=== PATIENT | male | born 1950 | race Caucasian/White ===

== ENCOUNTER 2019-12-15 09:47 | Emergency (ER) | payer MEDICARE, OTHER ==
[2019-12-15] MEDS ORDERED: SODIUM CHLORIDE 0.9% (FLUSH) 10 ML SYG IV PRN (09:55)
[2019-12-15] MEDS ORDERED: SODIUM CHLORIDE 0.9% 500ML 500 ML IVS ONE (10:10)
--- NOTE | 2019-12-15 10:19 | RAD ---
Procedure: XR CHEST 1 VIEW Exam Date: 12/15/2019 Ordering Provider: Danny Dias Clinical Indication: syncope Comparison: None Findings: Cardiomediastinal silhouette is within normal limits. No focal lung consolidation. No pleural effusion. No pneumothorax. No acute osseous abnormality. Impression: 1. No acute abnormality in the chest. Electronically signed by: Eric Valdovinos MD 12/15/2019 10:17 AM [facility]
--- NOTE | 2019-12-15 10:43 | ED.PDOC ---
History of Present Illness - General Chief Complaint: Syncope/Near Syncope Stated Complaint: Pt had a syncopal event, fell in hit head. Time Seen by Provider: 12/15/19 09:55 - History of Present Illness Initial Comments: 69yo male presents with family after syncopal episode this morning, while standing in bathroom counter. Denies antecedent illness or symptoms, awoke on the floor. Hit head, is taking warfarin. Has aching at the contusion, but no severe headache at this time. No numbness or weakness. Also notes mild neck pain. Is taking warfarin due to history of pulmonary embolism, which was diagnosed several years ago, has not been restudied, was advised to take warfarin for life. No history of syncope, arrhythmia or other cardiac history. Allergies/Adverse Reactions: Allergies NO KNOWN ALLERGY Allergy (Verified 12/15/19 10:13) Review of Systems - Review of Systems Review of Systems: 12/15/19 10:41 General: Denies generalized weakness, fever, arthralgia/myalgia HEENT: Denies sore throat, rhinorrhea Cardiovascular: Denies chest pain, palpitations prior to syncope Respiratory: Denies SOB, cough Gastrointestinal: Denies abdominal pain, vomiting, diarrhea : Denies dysuria, frequency Musculoskeletal: Denies extremity pain, extremity swelling Integument: Denies rash, itching Neuro: Denies focal weakness or numbness Psych: Denies depression, hallucinations. Past Medical History (General) - Patient Medical History Hx Stroke: No Hx of COPD: No Hx Cardiac Disorders: Yes - Mitral valve prolapse Hx Hypertension: Yes Hx Diabetes: No Hx Cancer: Yes - prostrate Surgical History: cancer surgery, colectomy - Vaccination History Hx Tetanus, Diphtheria Vaccination: Yes Hx Influenza Vaccination: Yes Hx Pneumococcal Vaccination: Yes - Social History Hx Tobacco Use: Yes Hx Alcohol Use: Yes Hx Substance Use: No Hx Substance Use Treatment: No Hx Depression: No - Female History Patient is a Female of Child Bearing Age (10 -59 yrs old): No Patient : No Family Medical History - Family History Mother Family History: No Known Physical Exam - Physical Exam Comments: General Appearance: Patient is awake and alert. Skin: Warm and dry. No diaphoresis. No rash or other lesions. Head: Normocephalic/atraumatic except small contusion posterior scalp. Eyes: PERRL, lids, conjunctiva and sclera unremarkable. EOMI intact. ENT: No nasal discharge. Oropharynx. Without erythema, exudate, lesions. Moist mucous membranes. Neck: Supple. No LAD. mild discomfort midline. No JVD noted. Respiratory: Normal rate and effort. Breath sounds clear bilaterally. Cardiovascular: Regular rate. Heart sounds normal. No murmur. GI: Abdomen soft, non-distended and non-tender. No rebound/guarding. Bowel sounds normal. Back: No tenderness Musculoskeletal: Extremities- Normal range of motion. No effusion, cyanosis, edema. Neurological: Alert. No facial palsy. Speech clear. Gag intact. No motor deficit, str symmetric. No sensory deficit. Progress - Progress Progress: 12/15/19 12:02 Safety Stop Patient feels much better. VS, exam remain reassuring. asympt with standing, vasquez PO. Labs, imaging are without acute abnormality. he has no evidence of emergent cardiac condition. neg CT imaging. I have discussed findings, diff dx, plan of care, need for follow-up with Cards, and reasons to return to the ED. we have discussed EKG, provided copy. Safety Stop (Diagnostic Time-Out): Tachycardia: No Diagnostic Studies: Reviewed Diagnostic Certainty: low, d/w patient Patient/family feels safe with discharge: Yes 12/15/19 12:17 - Results/Orders Results/Orders: Vital Signs - 24 hr 12/15/19 12/15/19 09:50 10:01 Temperature 96.8 F L Pulse Rate [ 94 H 94 H Pulse ox] Respiratory 16 16 Rate Blood Pressure 176/89 [L brachial] O2 Sat by Pulse 97 Oximetry 12/15/19 09:55 Telemetry .ONCE Sodium Chloride 0.9% (Flush) [Saline Flush Syringe] 10 ml IV PRN PRN EKG Stat Pulse Ox Stat 12/15/19 10:03 CARDIAC PANEL,ER Stat 12/15/19 10:09 CTA Chest [CT] Stat Cervical Spine [CT] Stat Head [CT] Stat Laboratory Results - last 24 hr 12/15/19 12/15/19 10:03 10:03 WBC 5.5 RBC 4.40 L Hgb 14.6 Hct 42.7 MCV 97.2 H MCH 33.2 H MCHC 34.1 RDW 14.4 Plt Count 114 L MPV 7.8 Absolute Neuts (auto) 3.40 Absolute Lymphs (auto) 1.40 Absolute Monos (auto) 0.60 Absolute Eos (auto) 0.10 Absolute Basos (auto) 0.00 Neutrophils % 61.1 Lymphocytes % 25.7 Monocytes % 10.8 H Eosinophils % 1.6 Basophils % 0.8 D-Dimer, Quantitative < 131 L Sodium 140 Potassium 4.0 Chloride 105 Carbon Dioxide 24 Anion Gap 15.0 BUN 12 Creatinine 1.09 BUN/Creatinine Ratio 11.0 Random Glucose 103 Serum Osmolality 279.4 Calcium 9.5 Magnesium 2.0 Creatine Kinase 149 CK-MB (CK-2) 2.1 CK-MB (CK-2) % Not Reportable Troponin I < 0.02 - EKG/XRAY/CT EKG: Sinus - 94 Comments: IA 202, bifascicular block QRS 154, no acute ischemia CT Ordered: Yes CT Interpretation Call Back: Yes - CT head, cspine, CTA chest neg for acute abnl Departure - Departure Clinical Impression: Syncope, Bifascicular block Time of Disposition: 12:04 Disposition: Discharge to Home or Self Care Condition: Good Departure Forms: ED Discharge - Pt. Copy, Patient Portal Self Enrollment Instructions: DI for Syncope in Adults (Fainting) Referrals: SHANIQUE HANCOCK MD [Consulting Staff] - 1-2 Weeks
--- NOTE | 2019-12-15 10:55 | CT ---
EXAM DESCRIPTION: Head: Computed Tomography. CLINICAL HISTORY: trauma, on warfarin. Possible LOC COMPARISON: CT scan of the cervical spine and CTA of the chest on this visit. TECHNIQUE: Non-helical axial scans through the skull and brain, at 5.0 x 20 intervals, non-contrast. Coronal and sagittal 2.0 mm reconstructions. Total Exam DLP: 859.97 mGy-cm. This exam was performed according to our departmental dose-optimization program which includes automated exposure control, adjustment of the mA and/or kV according to patient size and/or use of iterative reconstruction technique; to reduce radiation dose to as low as reasonably achievable (ALARA). FINDINGS: No hemorrhage, no mass-effect, and no midline shift. Low-density abutting the bilateral occipital horns of the lateral ventricles in the posterior bodies of the lateral ventricles in the occipital lobe. Bilateral basal ganglier calcifications. No abnormal parenchymal hemorrhage. Vascular calcifications anterior and posterior circulations; physiologic calcifications in the pineal gland and choroid plexus. No effacement or displacement of the ventricles, CSF spaces, or subdural spaces. No extra axial fluid collection or hemorrhage. No gross abnormalities of the bony calvarium. Mastoid air cells are well - aerated. Minimal mucoperiosteal thickening in the bilateral ethmoid air cells. Millie bullosa left middle turbinate. IMPRESSION: 1. No hemorrhage, no mass effect, no midline shift. Periventricular white matter low-density most likely related to cerebral microvascular disease and aging. No extra-axial hemorrhage or abnormal fluid collection. 2. CT scans are insensitive for detecting small CVAs in the first 24 hours after onset. Evaluation of the brain stem is also limited. If symptoms persist, consider NON-EMERGENT MRI scan of the brain with diffusion imaging. 3. Minimal chronic paranasal sinus findings. Electronically signed by: Shen Vicente MD 12/15/2019 10:54 AM SENIOR IT PROJECT MANAGER
--- NOTE | 2019-12-15 11:17 | CT ---
EXAM DESCRIPTION: CTA Chest: Computed Tomography. CLINICAL HISTORY: syncope, hx of PE. Ground-level fall. Patient on blood thinner. COMPARISON: CT scan of the head and CT scan of the cervical spine TECHNIQUE: Spiral-axial scans at 2.5 x 2.5 mm intervals through the pulmonary arteries and chest after bolus infusion of IV contrast. Lung algorithm 1.25 x 2.5 mm axial reconstructions. Coronal and sagittal 2.0 Mm reconstructions. 10.0 mm PE oblique 3-D reformatted images. No adverse reactions. Total Exam DLP: 998.07 mGy-cm. This exam was performed according to our departmental CT dose-optimization program which includes automated exposure control, adjustment of the mA and/or kV according to patient size and/or use of iterative reconstruction technique; to reduce radiation dose to as low as reasonably achievable (ALARA). FINDINGS: Pulmonary arteries: Fair visualization of the pulmonary arterial system containing IV contrast, with better contrast density in the right subclavian vein and superior vena cava. Contrast density within the aorta and left ventricle. No filling defects in the main pulmonary artery to the proximal subsegmental pulmonary arterial branches bilaterally. These peripheral pulmonary arterial branches are symmetric bilaterally. Heart and other great vessels: Minimal ectasia of the proximal aortic arch. Atherosclerotic calcification in the aortic arch and the proximal brachiocephalic vessels. Coronary artery calcifications. No significant cardiomegaly. Lungs and airways: Bilateral scattered peripheral blebs upper and lower lung bates. Bilateral posterior dependent atelectasis in the lower lobes. Bilateral pleural-parenchymal scarring in the lower lobes. Calcified granuloma posterior right upper lobe (pleura. No abnormal nodules and no masses. No focal infiltrates. No wedge-shaped pulmonary densities. Pleura: Bilateral multifocal thickening. Otherwise negative. Mediastinum and ebenezer: scatter artifact from dense PA contrast. Small lymph nodes. No dominant soft tissue masses or abnormal enhancement. Soft tissue neck, chest wall, and axillae: Bilateral axillary lymph nodes. Upper abdomen: No free air or free fluid. Normal size and density of the spleen and adrenal glands. Gallbladder partially visualized. 2 cm cyst lateral left renal cortex. Osseous structures: Arthrosis bilateral shoulders sternomanubrial joint. Kyphosis and spondylosis thoracic spine. No destructive bone lesions. IMPRESSION: 1. Opacification of the pulmonary artery system was not optimal, but no acute pulmonary embolus present. Right upper lobe parenchymal calcification versus pleural calcification 2. Chronic densities bilateral lungs with no abnormal nodules or masses. No pleural effusion or pneumothorax. 3. 2 cm left renal cyst. 4. Atherosclerotic calcification brachiocephalic vessels, thoracic aorta, and coronary arteries. Electronically signed by: Shen Vicente MD 12/15/2019 11:16 AM DISTRIBUTION ENGINEER
--- NOTE | 2019-12-15 11:44 | CT ---
EXAM DESCRIPTION: Cervical Spine: Computed Tomography. CLINICAL HISTORY: 69 years Male trauma, on warfarin. History of DVT. Syncope. Ground level fall. COMPARISON: CT scan of the head and CTA of the chest on the same visit. TECHNIQUE: Spiral, axial 2.5 x 2.5 mm scans through the cervical spine without contrast. Coronal and sagittal 2.0 mm Reconstructions Total Exam DLP: 378.61 mGy-cm. This exam was performed according to our departmental dose-optimization program which includes automated exposure control, adjustment of the mA and/or kV according to patient size and/or use of iterative reconstruction technique; to reduce radiation dose to as low as reasonably achievable (ALARA). FINDINGS: Hypertrophic arthrosis atlantoaxial joint with marginal spurs and joint space narrowing. Small soft tissue bone fragments secondary to arthrosis not trauma abutting the odontoid tip in the anterior foramen magnum. Arthrosis in the bilateral atlantooccipital joints with no traumatic changes. No significant arthrosis in the C1-C2 facets and no fractures. Minimal disc space narrowing at multiple levels from C2-3 to C7-T1. Most narrowing at C7-T1 with anterior bridging osteophytes more to the left of midline. Uncinate spurs narrowing the foramina more left than right. Near stenosis of the left neural foramen. And moderate canal narrowing. No significant canal or neural foraminal narrowing or stenosis at other levels. No vertebral body compression type fractures. No fractures of the posterior elements. No perched or locked facets. Mid cervical spine is slightly kyphotic. No significant scoliosis. No abnormally sized lymph nodes in the carotid space, posterior paracervical space, or included para- pharyngeal space. No abnormalities in the included lung parenchyma. IMPRESSION: 1. No acute fracture or subluxation in the cervical spine. 2. Kyphosis, spondylosis, minimal facet joint arthrosis with no perched or locked facets. Near stenosis of the left neural foramen at C7-T1, but not acute. Electronically signed by: Shen Vicente MD 12/15/2019 11:43 AM CHIEF TECHNOLOGIST
[2019-12-15 13:33] VITALS: BP 160/89; TEMP 97.3; O2SAT 96
== END 2019-12-15 12:41 | disposition home or self-care (01) ==
LOC: ER 09:47
DX: R55 Syncope and collapse (principal); I45.2 Bifascicular block; S00.93XA Contusion of unspecified part of head, initial encounter; M54.2 Cervicalgia; I34.1 Nonrheumatic mitral (valve) prolapse; I10 Essential (primary) hypertension; Z85.46 Personal history of malignant neoplasm of prostate; Z87.891 Personal history of nicotine dependence; Z79.01 Long term (current) use of anticoagulants; Z86.711 Personal history of pulmonary embolism; W18.30XA Fall on same level, unspecified, initial encounter; Y92.89 Other specified places as the place of occurrence of the external cause
CPT/HCPCS: 70450; 71045; 71275; 72125; 80048; 82550; 82553; 84484; 85025; 85379; 85610; 85730; 93005; J7040

== ENCOUNTER → 2020-06-20 | Outpatient (CLI) | payer MEDICARE, OTHER ==
--- NOTE | 2020-06-21 10:29 | US ---
EXAM DESCRIPTION: Renal: Ultrasound. CLINICAL HISTORY: 70 years Male PERSONAL HISTORY OF MALIGNANT NEOPLASM OF PROSTATE COMPARISON: None TECHNIQUE: Transcutaneous scanning: Two-dimensional and Doppler modes. FINDINGS: Right kidney measures 10.1 x 5.7 x 4.8 cm; volume 144.8 ml. Mid-renal cortical thickness normal . Normal cortical echogenicity. No hydronephrosis No echogenic stones. Smooth contour of the kidney with no perinephric fluid. Normal vascularity. Proximal ureter not seen.. Left kidney measures 11.0 x 7.0 x 6.6 cm; volume 230.3 ml. Mid-renal cortical thickness normal. echogenicity. No hydronephrosis. No echogenic stones. Smooth contour of the kidney with no perinephric fluid. Normal vascularity.. Proximal ureter not seen. 2.2 cm cyst with calcified wall and septations in the mid kidney. Urinary bladder was visualized. Prevoid volume 9.1 mL. Ureteral jet in the bladder not seen in the bladder by color Doppler. Patient did not void. Abdominal aorta: 2 cm proximally, 2 cm mid aorta, and 1.9 cm distally. IMPRESSION: 1. Complex partially calcified cyst left kidney. Consider CT follow-up without and with IV contrast. 2. Otherwise bilateral kidneys are unremarkable. 3. Urinary bladder visualized but ureters jets were not seen by color Doppler. Patient did not void. Normal caliber of the abdominal aorta. Electronically signed by: Shen Vicente MD 06/21/2020 10:27 AM CDT
== END ==
LOC: US 08:00
DX: E29.1 Testicular hypofunction (principal); N28.1 Cyst of kidney, acquired; Z85.46 Personal history of malignant neoplasm of prostate

== ENCOUNTER → 2020-09-05 | Outpatient (CLI) | payer MEDICARE, OTHER | LOC: GMAM 15:03 | PROVIDERS: ATTEND Family Medicine | DX: Z85.46 Personal history of malignant neoplasm of prostate (principal); R55 Syncope and collapse; I10 Essential (primary) hypertension; E78.2 Mixed hyperlipidemia ==

== ENCOUNTER → 2020-09-08 | Outpatient (CLI) | payer MEDICARE, OTHER ==
--- NOTE | 2020-09-09 21:54 | CT ---
EXAM DESCRIPTION: Abdomen/Pelvis w/wo Contrast: Computed Tomography. CLINICAL HISTORY: CYST OF KIDNEY COMPLEX COMPARISON: Ultrasound kidneys June 20. TECHNIQUE: Spiral-axial scans at 5 x 5 mm intervals through the abdomen and pelvis before and after 75 mL Optiray 320 nonionic IV contrast. No oral contrast. Coronal and sagittal 2.0 mm reconstructions. 5 mm Delayed helical-axial scans, liver through the pubic symphysis. No adverse reactions. Total Exam DLP 2800 mGy - cm. This exam was performed according to our departmental CT dose-optimization program which includes automated exposure control, adjustment of the mA and/or kV according to patient size and/or use of iterative reconstruction technique; to reduce radiation dose to as low as reasonably achievable (ALARA). FINDINGS: Kidneys and Ureters: 1.8 X 2.2 cm cyst protruding from the lateral left renal cortex with normal Hounsfield densities no calcification or abnormal enhancement. Minimal calcification of the medial capsule of the lower pole of the kidney. Right kidney is unremarkable. Bilateral ureters with no hydroureter or periureteral edema. Pelvic Organs: Minimal contrast seen in the urinary bladder on delayed views. Minimal wall thickening and no radiodense stones. Prostate gland abutting the base of the bladder and the seminal vesicles. No free fluid. Mesentery: No free air or free fluid or fatty stranding or fascial thickening. Dimock for penile implant in the lower right side of the pelvis anterior to the right external iliac artery and vein just below the cecum and extending into the right inguinal canal. Complications. Aorta: Moderate calcification. Lung bases and pleura: Emphysematous blebs peripheral septal thickening and scarring subpleural mostly in the right lower lobe. Liver, Stomach, Spleen, Adrenal Glands: Negative. Pancreas, Gallbladder, Ducts: Gallbladder visualized. Otherwise unremarkable. Small Bowel: Negative for distention. Terminal Ileum/Cecum: Normal caliber. Radiodense material inferior cecum radiodense food, or medication, or calcification. Colon: Diffuse minimal fecal matter with no air-fluid levels. Sigmoid anastomosis, mid segment; No complications. Spine and Bony Pelvis: Decreased bone density spondylolysis multiple levels lumbar and thoracic significant bilateral foraminal narrowing at L4-L5. Hypertrophic superior lateral acetabular margins with over coverage of the femoral heads. Also bilateral femoral cortical bumps just above the subcapital femoral necks. Bilateral SI joint arthrosis. Abdominal Wall/Back Soft Tissues: Minimal fatty tissue in the limiting of the canal but no bowel incarceration. IMPRESSION: 2.2 cm cyst protruding from the lateral cortex of the left kidney with no complications or concerning findings in either kidney. Minimal bladder wall thickening which may be due to prostate enlargement. No fluid in the pelvic cavity. Emphysematous changes in the lung bases. Dimock for penile implant in the right lower quadrant of the pelvis with no definite complications. Spondylosis thoracic and lumbar spine. Findings in the acetabula and lateral cortex of the femoral heads can be associated with femoral acetabular impingement. Electronically signed by: Shen Vicente MD 09/09/2020 9:53 PM CDT
== END ==
LOC: CT 08:00
PROVIDERS: ATTEND Family Medicine
DX: N28.1 Cyst of kidney, acquired (principal); N32.89 Other specified disorders of bladder; M47.894 Other spondylosis, thoracic region; M47.896 Other spondylosis, lumbar region; Z96.9 Presence of functional implant, unspecified; M25.851 Other specified joint disorders, right hip; M25.852 Other specified joint disorders, left hip

== ENCOUNTER 2020-12-14 05:31 | Day surgery (SDC) | payer MEDICARE, OTHER ==
[2020-12-14] MEDS ORDERED: LACTATED RINGERS 1,000 ML IVS ONE (06:35)
[2020-12-14] MEDS ORDERED: LACTATED RINGERS 1,000 ML ONE (06:41)
[2020-12-14] MEDS ORDERED: LIDOCAINE 1% 10 ML VIAL INJ ONE (07:00)
[2020-12-14] MEDS ORDERED: PROPOFOL 200 MG/20 ML VIAL IV ONE (07:00)
[2020-12-14 09:18] VITALS: BP 140/74; TEMP 97.5; O2SAT 98
--- NOTE | 2020-12-14 09:18 | OP ---
DATE OF PROCEDURE: 12/14/20 PREOPERATIVE DIAGNOSIS: 1. History of colon polyps. 2. History of colectomy. POSTOPERATIVE DIAGNOSIS: 1. Normal colon. PROCEDURE: 1. Colonoscopy. SURGEON: Warren Douglas MD ANESTHESIA: General, Pasha Parada CRNA. FINDINGS: Normal colon. I did not see the anastomosis from previous reported surgery. COMPLICATIONS: None. PLAN: Discharge. INDICATION: As stated. PROCEDURE: General anesthesia was induced in the lateral position. The patient had an adequate prep. He has been off his Coumadin now for 4 days. Digital rectal exam was normal. He has some uncomplicated hemorrhoids. The colonoscope was inserted and passed successfully to the cecum as identified by the appendiceal orifice and ileocecal valve. Upon withdrawal, with a good prep, no polyps were seen. There were no significant mucosal abnormalities. Again, I did not notice any prior anastomosis or evidence of stricturing. The patient tolerated the procedure and was taken to Recovery to be discharged. #[id number] cc: Juan Person MD MTDD
== END 2020-12-14 09:05 | disposition home or self-care (01) ==
LOC: AMB 05:31
PROVIDERS: ATTEND Surgery
DX: K59.00 Constipation, unspecified (principal); E78.00 Pure hypercholesterolemia, unspecified; I10 Essential (primary) hypertension; Z86.010 Personal history of colon polyps; Z85.46 Personal history of malignant neoplasm of prostate; Z87.19 Personal history of other diseases of the digestive system; Z87.891 Personal history of nicotine dependence; Z79.01 Long term (current) use of anticoagulants; Z79.899 Other long term (current) drug therapy
CPT/HCPCS: 00811; 45378; J7120